=== PATIENT | male | born 2000 | race Caucasian/White ===

== ENCOUNTER → 2020-03-28 10:15 | Outpatient (BNVA) | payer OTHER, SELFPAY | PROVIDERS: Visit Provider Nurse Practitioner Family | DX: Z11.59 Encounter for screening for other viral diseases (principal); J06.9 Acute upper respiratory infection, unspecified; R43.0 Anosmia | CPT/HCPCS: 87635 ==

== ENCOUNTER 2024-08-13 15:45 | Emergency (ER) | payer BC, SELFPAY ==
[2024-08-13 15:50] VITALS: BP 139/87; PULSE 98; RESP 17; TEMP 36.6; O2SAT 97; BMI 27.2
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
[2024-08-13] MEDS: ibuprofen 600 mg Tablet PO (16:40)
[2024-08-13] MEDS: acetaminophen 500 mg Tablet 1000 MG PO (16:40)
[2024-08-13] MEDS: methocarbamol 750 mg Tablet 1500 MG PO (16:50)
[2024-08-13 16:51] VITALS: BP 124/95; PULSE 78; O2SAT 96
[2024-08-13 17:30] VITALS: BP 129/80; PULSE 80; O2SAT 96
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
[2024-08-13 18:26] VITALS: BP 133/81; PULSE 81; O2SAT 96
== END 2024-08-13 18:26 | disposition home or self-care (01) ==
PROVIDERS: Emergency Provider Emergency Medicine
DX: S13.4XXA Sprain of ligaments of cervical spine, initial encounter (principal); S43.401A Unspecified sprain of right shoulder joint, initial encounter; S29.012A Strain of muscle and tendon of back wall of thorax, initial encounter; S00.83XA Contusion of other part of head, initial encounter; V86.95XA Unspecified occupant of 3- or 4- wheeled all-terrain vehicle (ATV) injured in nontraffic accident, initial encounter
CPT/HCPCS: 70450; 71045; 72125; 73030; 73060; 99284